=== PATIENT | female | born 1985 | race American Indian/Alaskan Native ===

== ENCOUNTER 2022-06-05 18:17 | Outpatient (CLI) | payer MEDICAID ==
[2022-06-05] MEDS ORDERED: LACTATED RINGERS 500 ML IV ONE (22:27)
[2022-06-05 22:30] VITALS: BP 103/66
--- NOTE | 2022-06-06 00:35 | Ultrasound Report ---
ULTRASOUND OBSTETRIC LIMITED INDICATION / CLINICAL INFORMATION: decreased movement. COMPARISON: None available. FINDINGS: A single live intrauterine is seen in cephalic presentation with a heart rate of 150 bpm. N o significant abnormality is identified. IMPRESSION: Single live intrauterine without identification of a significant sonographic abnormality. Signer Name: Sebastián Zhang MD Signed: 06/06/2022 12:30 AM Workstation Name: [employer][id number]
== END 2022-06-05 23:46 | disposition home or self-care (01) ==
LOC: TRG 18:17 → APU 18:23 → TRG 23:46
PROVIDERS: ATTEND Obstetrics & Gynecology
DX: O09.893 Supervision of other high risk pregnancies, third trimester (principal); O36.8120 Decreased fetal movements, second trimester, not applicable or unspecified; O26.892 Other specified pregnancy related conditions, second trimester; M79.89 Other specified soft tissue disorders; R10.9 Unspecified abdominal pain; Z3A.20 20 weeks gestation of pregnancy
CPT/HCPCS: 76815